=== PATIENT | female | born 1965 | race Caucasian/White ===

== ENCOUNTER 2017-04-18 15:08 | Inpatient (IN) | payer MEDICAID ==
--- NOTE | 2017-04-18 16:24 | ED Physician Chart ---
ED Chief Complaint/HPI - Patient Information Date Seen:: 04/18/17 Time Seen:: 15:25 Chief Complaint:: Cough History of Present Illness:: onset x 6 weeks of a productive cough; pt denies H/As, S/T, E/as, neck pain, C/P , SOB, Abd. 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:: Allergies Allergy/AdvReac Type Severity Reaction Status Date / Time mafenide [From Sulfamylon] Allergy Verified 04/18/17 15:24 Vitals:: Vital Signs - 8 hr 04/18/17 15:24 Temp 97.4 F HR 86 RR 16 BP 109/76 O2 Sat % 96 Historian:: Patient Review:: Nurse's Note Reviewed ED Review of Systems - Review of Systems General/Constitutional: No fever, No chills, No weight loss, No weakness, No diaphoresis, No edema, No loss of appetite Skin: No skin lesions, No rash, No bruising Head: No headache, No light-headedness Eyes: No loss of vision, No pain, No diplopia ENT: No earache, No nasal drainage, No sore throat, No tinnitus Neck: No neck pain, No swelling, No thyromegaly, No stiffness, No mass noted Cardio Vascular: No chest pain, No palpitations, No PND, No orthopnea, No edema Pulmonary: No SOB, Cough, No sputum, No wheezing GI: No nausea, No vomiting, No diarrhea, No pain, No melena, No hematochezia, No constipation, No hematemesis G/U: No dysuria, No frequency, No hematuria, No nacturia 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, No abnormal vaginal bleed, No contraction Musculoskeletal: No bone or joint pain, No back pain, No muscle pain Endocrine: No polyuria, No polydipsia Psychiatric: No prior psych history, No depression, No anxiety, No suicidal ideation, No homicidal ideation, No auditory hallucination, No visual hallucination Hematopoietic: No bruising, No lymphadenopathy Allergic/Immuno: No urticaria, No angioedema Neurological: No syncope, No focal symptoms, No weakness, No paresthesia, No headache, No seizure, No dizziness, No confusion, No vertigo ED Past Medical History - Past Medical History Obtainable: Yes Past Medical History: Dyslipidemia, Thyroid disorder (Migraine Headaches; Anxiety Reactions) Family History: HTN, Cancer Social History: Non Smoker, No Alcohol, No Drug Use, Single Surgical History: None Psychiatricy History: Other (Anxiety Reaction) Medication: Reviewed Family Medical History - Family Member Father Living Status: Other Medical History: lung ca ED Physical Exam - Physical Examination General/Constitutional: Awake, Well-developed, well-nourished, Alert, No distress, GCS 15, Non-toxic appearing, Ambulatory Head: Atraumatic Eyes: Lids, conjuctiva normal, PERRL, EOMI Skin: Nl inspection, No rash, No skin lesions, No ecchymosis, Well hydrated, No lymphadenopathy ENMT: External ears, nose nl, TM canals nl, Nasal exam nl, Lips, teeth, gums nl , Oropharynx nl, Tonsils nl Neck: Nontender, Full ROM w/o pain, No JVD, No nuchal rigidity, No bruit, No mass, No stridor Respiratory: Nl effort/Exclusion Other Respiratory comments:: Lungs: + Rales and Rhonchi Cardio Vascular: RRR, No murmur, gallop, rubs, NL S1 S2, Carotid/Femoral/Distal pulses equal bilaterally GI: No tenderness/rebounding/guarding, No organomegaly, No hernia, Normal BS's, Nondistended, No mass/bruits, No McBurney tenderness : No CVA tenderness Extremities: No tenderness or effusion, Full ROM, normal strength in all extremities, No edema, Normal digits & nails Neuro/Psych: Alert/oriented, DTR's symmetric, Normal sensory exam, Normal motor strength, Judgement/insight normal, Mood normal, Normal gait, No focal deficits Misc: Normal back, No paraspinal tenderness ED Labs/Radiology/EKG Results - Lab Results Comments:: Test: Negative - Radiology Results Comments:: CXR: COPD; + RML Infiltrate - EKG Interpretations EKG Time:: 18:51 Rate & Rhythm: 73; NSR Comments:: non-specific st-t changes ED Septic Shock - . Is Septic Shock (SBP<90, OR Lactate>4 mmol\L) present?: No - <6hrs of presentation: Vital Signs: Vital Signs - 8 hr 04/18/17 15:24 Temp 97.4 F HR 86 RR 16 BP 109/76 O2 Sat % 96
[2017-04-18] MEDS ORDERED: cefTRIAXone 1 GM in Sodium Chloride 0.9% 50 ML IV ONE (18:42)
[2017-04-18] MEDS ORDERED: Azithromycin 500 MG in Sodium Chloride 0.9% 250 ML IV ONE (18:42)
[2017-04-18 19:04] LABS: % BASOPHILS 0.3 % (0.0-2.0); % EOSINOPHILS 0.8 % (0.0-5.0); % LYMPHOCYTES 16.2 % (20.0-50.0); % MONOCYTES 6.4 % (2.0-10.0); % NEUTROPHILS 76.3 % (40.0-80.0); EOSINOPHILE ABSOLUTE 0.1 Th/cmm (0.1-0.4); HEMATOCRIT 38.3 % (41.0-60); HEMOGLOBIN 12.7 gm/dL (12-16); MEAN CELL VOLUME 87.2 fl (81-100); MEAN CORPUSCULAR HEMOGLOBIN 28.9 pg (27.0-31.0); MEAN CORPUSCULAR HGB CONC 33.1 pg (28.0-36.0); MEAN PLATELET VOLUME 7.4 fl; MONOCYTE ABSOLUTE 0.8 Th/cmm (0.3-1.0); NEUTROPHILE ABSOLUTE 9.3 Th/cmm (1.8-8.0); PLATELET COUNT 262 Th/cmm (150-400); RED BLOOD COUNT 4.38 Mil/cmm (3.80-5.10); RED CELL DISTRIBUTION WIDTH 12.6 % (11.5-20.0)
[2017-04-18 19:09] LABS: URINE MICROSCOPIC INDICATED? YES; URINE SOURCE MIDSTREAM
[2017-04-18 19:12] LABS: URINE BILIRUBIN SMALL (NEGATIVE); URINE BLOOD NEGATIVE (NEGATIVE); URINE GLUCOSE (UA) NEGATIVE (NEGATIVE); URINE KETONE 15 mg/dL (NEGATIVE); URINE LEUKOCYTE ESTERASE NEGATIVE (NEGATIVE); URINE NITRATE NEGATIVE (NEGATIVE); URINE PROTEIN 30 mg/dL (NEGATIVE); URINE UROBILINOGEN 0.2 E.U./dL (0.2 - 1.0)
[2017-04-18 19:14] LABS: WHITE BLOOD COUNT 12.2 Th/cmm (4.8-10.8)
[2017-04-18 19:16] LABS: INR 0.91 (0.5-1.4); PROTHROMBIN TIME (TEST) 9.5 SECONDS (9.5-11.5)
[2017-04-18 19:17] LABS: URINE CLARITY CLEAR (CLEAR); URINE COLOR YELLOW
[2017-04-18 19:18] LABS: URINE BACTERIA NONE SEEN /hpf (NONE SEEN); URINE EPITHELIAL CELLS NONE SEEN /lpf (FEW); URINE RBC NONE SEEN /hpf (0-5); URINE WBC NONE SEEN /hpf (0-5)
[2017-04-18 19:21] LABS: ALB/GLOB RATIO 1.4 (1.0-1.8); ALBUMIN 4.6 gm/dL (3.7-5.3); ALKALINE PHOSPHATASE 99 U/L (34-104); ANION GAP 11.8 (7.0-16.0); BILIRUBIN,TOTAL 0.4 mg/dL (0.3-1.0); BUN - UREA NITROGEN 7 mg/dL (7-25); CALCIUM SERUM 9.8 mg/dL (8.6-10.3); CARBON DIOXIDE 25.6 mEq/L (21.0-31.0); CHLORIDE 104 mEq/L (98-107); CHOLESTEROL 173 mg/dL (<200); CREATININE - SERUM 0.8 mg/dL (0.6-1.2); CREATININE KINASE 60 U/L (30-223); GFR AFRICAN-AMERICAN > 60.0 ml/min (>90); GFR NON AFRICAN-AMERICAN > 60.0 ml/min; GLUCOSE 96 mg/dL (70-105); HDL -HIGH DENSITY LIPOPROTEIN 48 mg/dL (23-92); POTASSIUM SERUM 3.4 mEq/L (3.5-5.1); SGOT 14 U/L (13-39); SGPT/ALT 14 U/L (7-52); SODIUM SERUM 138 mEq/L (136-145); TOTAL PROTEIN,SERUM 7.8 gm/dL (6.0-8.3); TRIGLYCERIDES 139 mg/dL (<150)
[2017-04-18 22:22] LABS: pH 7.43 (7.35-7.45)
[2017-04-18 22:23] LABS: ALLEN TEST Positive
[2017-04-18] MEDS ORDERED: HYDROmorphone 1 mg/mL 1mL Syr IVP PRN (23:06)
[2017-04-18] MEDS: Sodium Chloride 0.9% 1,000 ML IV SCH (23:43)
[2017-04-19 01:26] VITALS: BP 122/64
[2017-04-19] MEDS: HYDROmorphone 1 mg/mL 1mL Syr IVP PRN ×3 (08:11→23:12)
--- NOTE | 2017-04-19 09:19 | Diagnostic Imaging Report ---
CHEST X-RAY: AP view INDICATION: Early pneumonia shortness of breath cough COMPARISON: None FINDINGS: These right basal lung markings are noted with obscuration of right heart border. No pleural effusions. Heart size normal. Osseous structures are intact. IMPRESSION: Increased right basal lung markings with obscuration of right heart border. Focal infiltrate/early pneumonia cannot be excluded. Follow-up recommended.
[2017-04-19] MEDS: cefTRIAXone 1 GM in Sodium Chloride 0.9% 50 ML IV SCH ×2 (09:37→20:57)
--- NOTE | 2017-04-19 13:22 | History & Physical ---
ADMIT DATE: 04/19/2017 RECENT SYMPTOMS: The cause of the patient to present to the Emergency Room: 1. Shortness of breath. 2. The patient was grossly fatigued. 3. The patient repeatedly complains of moderate to severe phlegm that she could not cough up properly. RECENT MEDICAL HISTORY: The patient presented to [facility] 04/18/2017 in the mid afternoon for feeling grossly fatigued and inability to breathe properly. She was very concerned because normally this patient, a 51-year-old female has relatively good health. She had been feeling more and more fatigued over the last several days prior to presenting to the Emergency Department. The patient phoned her primary doctor, Dr. Fredy Mcelroy in the early evening indicating that she was at the Emergency Room and she was expecting to be admitted. Dr. Mcelroy in turn telephoned the Emergency Department, confirming that the patient was there and that they had taken a chest x-ray and the chest x-ray demonstrated pulmonary interstitial disease and that the patient was suffering from acute bronchitis and unable to breathe with an arterial blood gas with a low PaO2 in the 70s, below normal. Also, the patient presented to the Emergency Department with elevated white blood cell count 12,200, decreased hematocrit 38.2, decreased potassium 3.4, decreased lymphocyte count 16.2. Her EKG was normal sinus rhythm. She did indicate that she was suffering from body aches that were increasing in severity and chills. Her vitals most recently 107/64, 98.7 body temperature, 78 heart rate, 18 respiratory rate. O2 saturation on 2 liters of oxygen 95%. FAMILY HISTORY: The patient lives with friends, is not , no children. SOCIAL HISTORY: The patient is not a cigarette smoker and is believed to drink socially once or twice per month. ALLERGIES: No known drug allergies. REVIEW OF SYSTEMS: HEENT: Significant for today's admission and that the patient was very congested and also sore throat. CHEST: Significant for today's admission and that the patient was complaining of inability to breathe properly and shortness of breath and not being able to get sufficient air on attempting to breathe. LUNGS: Significant for today's admission and that chest x-ray demonstrated interstitial lung disease and demonstrated gross hilar adenopathy as per my interpretation. CARDIAC: Not significant for today's admission. ABDOMEN: Not significant for today's admission. EXTREMITIES: Not significant for today's admission, although the patient does have 2 bruises, 1 on the left hip and the other on the left arm, perhaps indicating that the patient fell. NEUROLOGICAL: Significant for today's admission and that the patient was feeling lightheaded, faint and not her normal self. PSYCHIATRIC: Significant for today's admission and that the patient has a preexisting history of bipolar disease. SPINE: Not significant for today's admission. GENITALIA: Not significant for today's admission. PHYSICAL EXAMINATION: HEENT: Tympanic membranes are intact bilaterally. Cephalous does not indicate any type of head trauma. Extraocular motion is intact. Pupils are equally reactive to light and accommodation. Fundi are intact, right and left side. Pharynx is red and nasal membranes are red. CHEST: Inspiratory and expiratory excursions are in normal range at this point. LUNGS: Positive rhonchi present on the right side, relatively clear breath sounds left and right side. CARDIAC: Normal sinus rhythm, no gross murmurs. ABDOMEN: Nondistended, nontender to palpation in all 4 quadrants. No gross masses palpable. No organomegaly present. EXTREMITIES: Full range of motion, preexisting history of hip, arthritis. NEUROLOGIC: Alert and oriented x 4. Cerebellum: Intact. The patient ambulates. PSYCHIATRIC: Mood and affect normal. Spine: Nontender to palpation. Gait demonstrates fatigue. IMPRESSION: 1. Pulmonary interstitial disease. 2. Acute viral pneumonitis. 3. Hilar adenopathy. 4. Shortness of breath. 5. Leukocytosis, elevated white blood cell count secondary to infection, both bacterial and viral. 6. Hypokalemia. 7. Very minimal anemia. 8. Two bruises left arm, left hip. 9. Cough. 10. Fatigue. 11. Preexisting history bipolar disorder. 12. Nausea. 13. Hyperlipidemia. 14. Anxiety. 15. Gastroesophageal reflux disease. 16. Depressive disorder. PLAN: 1. Admit to medical surgery. 2. Rocephin 1000 IV piggyback every 12 hours. 3. Zithromax 500 IV piggyback every 24 hours. 4. Sodium chloride IV flowing at the rate of 25 mL per hour. 5. Cymbalta 30 mg p.o. every 12 hours. 6. Dilaudid 1 mg IV slow push every 6 hours p.r.n. pain. 7. Zofran 4 mg p.o. every 12 hours. 8. Simvastatin 10 mg p.o. at bedtime. 9. Lamictal 150 mg p.o. every 24 hours. 10. Ativan 2 mg IV slow push every 8 hours. 11. Sucralfate 1000 mg p.o. q.i.d. Consult Pulmonology with Dr. Alcocer. JOB# [id number]
[2017-04-19] MEDS: Azithromycin 500 MG in Sodium Chloride 0.9% 250 ML IV SCH (21:37)
[2017-04-20] MEDS: Levothyroxine 0.05 Mg Tab PO SCH (06:48)
[2017-04-20] MEDS: Pantoprazole 40 mg EC Tab PO SCH (08:47)
[2017-04-20] MEDS: cefTRIAXone 1 GM in Sodium Chloride 0.9% 50 ML IV SCH ×2 (08:48→20:40)
[2017-04-20 13:30] LABS: INF A SCREEN NEG FOR INF A; INF B SCREEN NEG FOR INF B
--- NOTE | 2017-04-20 13:58 | Diagnostic Imaging Report ---
CHEST X-RAY: 2 views INDICATION: Cough COMPARISON: None FINDINGS: Right basal infiltrates are noted. Heart size is normal. Osseous structures are intact. IMPRESSION: Focal right basal infiltrate along the right heart border.
--- NOTE | 2017-04-20 13:59 | Diagnostic Imaging Report ---
CHEST X-RAY: AP view INDICATION: Cough COMPARISON: Chest x-ray 04/19/2017 FINDINGS: Improving right medial basal airspace disease and atelectatic changes are noted. No focal consolidation or pleural effusions. Heart size is normal. IMPRESSION: Improving right basal atelectatic changes in airspace disease. No focal consolidation infarct.
[2017-04-20] MEDS: Sodium Chloride 0.9% 1,000 ML IV SCH (17:26)
[2017-04-20] MEDS: HYDROmorphone 1 mg/mL 1mL Syr IVP PRN (20:49)
[2017-04-20] MEDS: Azithromycin 500 MG in Sodium Chloride 0.9% 250 ML IV SCH (21:39)
[2017-04-21] MEDS: Levothyroxine 0.05 Mg Tab PO SCH (06:43)
[2017-04-21] MEDS: cefTRIAXone 1 GM in Sodium Chloride 0.9% 50 ML IV SCH (09:25)
[2017-04-21] MEDS: Pantoprazole 40 mg EC Tab PO SCH (09:27)
[2017-04-21] MEDS: Azithromycin 500 MG in Sodium Chloride 0.9% 250 ML IV SCH (12:13)
[2017-04-21 12:26] LABS: ANION GAP 5.3 (7.0-16.0); BUN - UREA NITROGEN 7 mg/dL (7-25); CALCIUM SERUM 9.3 mg/dL (8.6-10.3); CARBON DIOXIDE 31.8 mEq/L (21.0-31.0); CHLORIDE 105 mEq/L (98-107); CREATININE - SERUM 0.7 mg/dL (0.6-1.2); GFR AFRICAN-AMERICAN > 60.0 ml/min (>90); GFR NON AFRICAN-AMERICAN > 60.0 ml/min; GLUCOSE 103 mg/dL (70-105); POTASSIUM SERUM 4.1 mEq/L (3.5-5.1); SODIUM SERUM 138 mEq/L (136-145)
--- NOTE | 2017-04-29 00:23 | Discharge Summary ---
DATE OF DISCHARGE: 04/21/2017 DISCHARGE DIAGNOSES: 1. Acute pneumonitis, resolving. 2. Hilar adenopathy, improving. 3. Pulmonary interstitial disease, improving. 4. Shortness of breath, resolved. 5. Leukocytosis, resolved. 6. Hypokalemia, resolved. 7. Anemia, under treatment. 8. Bruises left arm and left hip, resolving. 9. Cough, resolving. 10. Nausea, resolved. 11. Hyperlipidemia, preexisting under treatment. 12. Bipolar disorder, preexisting under treatment. 13. Anxiety, preexisting under treatment. 14. Gastroesophageal reflux disease, preexisting under treatment. 15. Depressive disorder, preexisting under treatment. 16. Viral respiratory infection with chills and body aches, resolved. 17. Leukocytosis. RECENT MEDICAL HISTORY: This patient is a 51-year-old female in good health relatively speaking, presented emergently to [facility] on 04/18 mid afternoon because of feeling grossly fatigued and inability to breath properly. She had been feeling more and more and more fatigued over the last several days prior to presenting to the Emergency Department. She phoned her primary doctor, myself, Dr. Mcelroy in the early evening indicating she was at the ER as she was expecting to be admitted myself. Dr. Mcelroy in turn telephoned the Emergency Department confirming that the patient was there, that they had taken a chest x-ray. Dr. Mcelroy conferred with the Emergency Department physician and both agreed that the patient needed to be admitted. Because of x-ray demonstrating pulmonary interstitial disease, the acute bronchitis and inability to breathe and a decreased below normal arterial blood gas with a low PaO2 in the 70s and the elevated white blood cell count 12,200 above normal, decreased potassium 3.4 below normal, and decreased lymphocyte count 16.2. Her EKG was normal. She indicated that she had body aches that were increasing in severity and chills. The vitals that the patient's included a blood pressure of 107/64, 98.7 body temperature, 78 heart rate, 18 respiratory rate, O2 sat on 2 liters of oxygen at 95%. DIAGNOSTIC DATA: This patient includes a chest x-ray taken on presentation on 04/18 showing pulmonary interstitial disease showing atelectasis of the right lower lung. Other diagnostic data includes the fact that the patient had a decreased potassium 3.4. A low PaO2 in the 70s below normal. Elevated white blood cell count 12,200. Decreased hematocrit 38.2. HOSPITAL COURSE AND TREATMENT: DAY #1, 04/18/2017: I was called by the Emergency Department physician and we agreed that the patient did need to be admitted. The patient was admitted to medical surgery with the following: Zithromax IV piggyback q. 24 hours 500 mg, Rocephin IV piggyback q. 12 hours 1000 mg, sodium chloride flowing at 25 mL per hour via IV, Cymbalta 30 mg p.o. q. 12 hours, Dilaudid 1 mg IV slow push q. 6 hours p.r.n. pain for a preexisting hip osteoarthritis. The patient was placed on Zofran 4 mg p.o. q. 12 hours., simvastatin 10 mg p.o. at bedtime, Lamictal 150 mg p.o. q. day, Ativan 2 mg IV slow push q. 8 hours p.r.n. anxiety, sucralfate 1000 mg p.o. q. 6 hours, propranolol 20 mg was given x 1. A second x-ray was to be taken according to Dr. Mcelroy instructions. DAY #2, 04/19/2017: Vitals included 107/64 blood pressure, 98.7 temperature, 75 heart rate, 18 respiratory rate, O2 saturation 95% on 2 liters per minute. Breath sounds with rhonchi. Diagnoses for day #2 pulmonary interstitial disease; significant hilar adenopathy as interpreted by Dr. Mcelroy on viewing chest x-ray, right-sided greater than left; evidence of viral upper respiratory infection; shortness of breath; fatigue; mild anemia; hyperlipidemia; bipolar disease. Plan: Continue Rocephin, continue Zithromax. DAY #3, 04/20/2017: Vitals include 121/57 blood pressure, 98.6 temperature, 78 heart rate, 18 respiratory rate, 97% on O2 saturation. Negative for influenza A, negative for influenza B on testing. Alert and oriented x 4. Breath sounds improved. Decreased cough. The patient is still very nasal on speaking, normal sinus rhythm, decreased right lower lobe atelectasis on chest x-ray; decreased hilar adenopathy, right-sided more so than left. Plan will be to discharge to home tomorrow, Monday in the early p.m. and will be discharged with a prescription by Dr. Mcelroy for Augmentin 875/125 mg p.o. b.i.d., ProAir HFA 2 puffs p.o. q.i.d., Z-You 250 mg one capsule p.o. q. day #6. Follow up with Dr. Mcelroy in his office on 04/24/2017 in the evening. DAY #4: The patient was stable and was tested and confirmed by nurse to have potassium in normal range that is to say hypokalemia, resolved. Dr. Mcelroy gave instructions over the telephone to discharge the patient to her home. Dr. Mcelroy phoned into the patient's pharmacy the prescription for the Augmentin 875/125 mg p.o. b.i.d. #20, Z-You 250 mg one capsule p.o. q. day #6, and the patient was instructed to follow up with Dr. Mcelroy in his office on Monday afternoon appointment as opposed to evening. CONDITION ON DISCHARGE: The patient was stable on discharge with much improved symptoms and breathing much better. CONSULTANTS: Dr. Alcocer, Pulmonology was called into this case as pulmonology consultants. CONDITION ON DISCHARGE: Stable. [facility]# [id number]
== END 2017-04-21 14:25 | disposition home or self-care (01) | DRG 720 ==
LOC: ER 15:08 → MSI 21:25
PROVIDERS: ADMIT General Practice; ATTEND General Practice
DX: A41.9 Sepsis, unspecified organism (principal); J12.9 Viral pneumonia, unspecified; D64.9 Anemia, unspecified; E78.5 Hyperlipidemia, unspecified; E07.9 Disorder of thyroid, unspecified; S40.022A Contusion of left upper arm, initial encounter; J20.9 Acute bronchitis, unspecified; E87.6 Hypokalemia; R59.9 Enlarged lymph nodes, unspecified; F31.9 Bipolar disorder, unspecified; F41.9 Anxiety disorder, unspecified; K21.9 Gastro-esophageal reflux disease without esophagitis; R11.0 Nausea; S70.02XA Contusion of left hip, initial encounter; G43.909 Migraine, unspecified, not intractable, without status migrainosus; Z88.2 Allergy status to sulfonamides; Z82.49 Family history of ischemic heart disease and other diseases of the circulatory system; Z80.1 Family history of malignant neoplasm of trachea, bronchus and lung
CPT/HCPCS: 36415-UA; 36600-90; 71045-TC; 71046-TC; 80048-TC; 80053-TC; 80061-TC; 81001-TC; 81025-TC; 82550-TC; 82803-TC; 83605; 83880-TC; 84484-TC; 85025-TC; 85610-TC; 85730-TC; 87804-TC; 93005; 94760; J0456; J0696; J1170; J2060; J7030; Q0162; Z7610